=== PATIENT | male | born 1950 | race Caucasian/White ===

== ENCOUNTER 2016-08-25 01:24 | Emergency (ER) | payer MEDICARE, MEDICAID ==
[2016-08-25 01:37] VITALS: TEMP 98; BMI 25.8
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
[2016-08-25 02:18] VITALS: BP 123/58; PULSE 105
== END 2016-08-25 02:21 ==
LOC: ED 01:24
DX: R45.1 Restlessness and agitation (principal)
CPT/HCPCS: 99283